=== PATIENT | male | born 1950 | race African-American/Black ===

== ENCOUNTER 2018-12-01 11:32 | Emergency (ER) | payer MEDICARE, MEDICAID ==
[~2018-12-01] VITALS: Ht 175.3 cm; Wt 72.0 kg
[2018-12-01] MEDS ORDERED: LIDOCAINE HCL/PF 1% 10 MG/ML 5ML VIAL IJ ONE (12:15)
[2018-12-01] MEDS ORDERED: BACITRACIN ZINC OINT UDPKT TOP ONE (12:15)
[2018-12-01 13:28] VITALS: BP 149/92
== END 2018-12-01 13:21 | disposition home or self-care (01) ==
LOC: ER 11:32
DX: L02.01 Cutaneous abscess of face (principal); F17.200 Nicotine dependence, unspecified, uncomplicated; Z98.890 Other specified postprocedural states
CPT/HCPCS: 10060; 99283; J3490

== ENCOUNTER 2018-12-03 15:43 | Emergency (ER) | payer MEDICARE, MEDICAID ==
[~2018-12-03] VITALS: Ht 175.3 cm; Wt 73.0 kg
[2018-12-03 16:15] VITALS: BP 122/74
== END 2018-12-03 17:56 | disposition left against medical advice (07) ==
LOC: ER 15:43
DX: Z48.01 Encounter for change or removal of surgical wound dressing (principal); F17.200 Nicotine dependence, unspecified, uncomplicated
CPT/HCPCS: 99282